=== PATIENT | female | born 2000 | race Two or more races ===

== ENCOUNTER 2022-08-17 22:06 | Emergency (ER) | payer OTHER ==
[~2022-08-17] VITALS: Ht 172.7 cm; Wt 68.2 kg
[2022-08-17 22:30] VITALS: BP 134/88
[2022-08-17] MEDS ORDERED: DIVA500T9 PO (23:33)
[2022-08-17] MEDS ORDERED: TRAZ-186 PO (23:33)
[2022-08-17] MEDS ORDERED: QUET100T2 PO (23:33)
[2022-08-17] MEDS ORDERED: BENZ1TAB5 PO (23:33)
[2022-08-17] MEDS ORDERED: HOME MED LIST COMPLETE! XX SCH (23:35)
[2022-08-18 00:21] LABS: AMPHETAMINES LEVEL URINE NEGATIVE (NEGATIVE); BARBITURATES URINE NEGATIVE (NEGATIVE); BENZODIAZEPINES URINE NEGATIVE (NEGATIVE); COCAINE METABOLITE URINE NEGATIVE (NEGATIVE); METHADONE URINE NEGATIVE (NEGATIVE); PHENCYCLIDINE URINE NEGATIVE (NEGATIVE)
[2022-08-18 00:22] LABS: OPIATES URINE NEGATIVE (NEGATIVE)
[2022-08-18 00:23] LABS: CANNABINOIDS URINE POSITIVE (NEGATIVE)
[2022-08-18 00:45] LABS: HEMATOCRIT 40.5 % (36.0-47.0); HEMOGLOBIN 13.3 g/dl (12.0-15.5); MEAN CORPUSCULAR HEMOGLOBIN 31.7 pg (27.0-33.0); MEAN CORPUSCULAR HGB CONC 32.8 g/dl (32.0-36.5); MEAN CORPUSCULAR VOLUME 96.4 fl (80.0-96.0); PLATELET COUNT, AUTOMATED 209 10^3/uL (150-450)
[2022-08-18 01:05] LABS: ETHYL ALCOHOL (ETHANOL) < 0.003 % (0.000-0.010)
[2022-08-18 01:07] LABS: ACETAMINOPHEN LEVEL < 2.0 UG/ML (10.0-20.0); SALICYLATE LEVEL < 3.0 MG/DL (<30)
[2022-08-18 01:08] LABS: ALBUMIN 4.3 G/DL (3.2-5.2); ALKALINE PHOSPHATASE 51 U/L (46-116); ALT/SGPT 27 U/L (7.0-40); AST/SGOT 32 U/L (<34); BILIRUBIN,DIRECT 0.2 MG/DL (<0.4); BILIRUBIN,TOTAL 0.6 MG/DL (0.3-1.2); BLOOD UREA NITROGEN 15 MG/DL (9-23); CALCIUM LEVEL 9.5 MG/DL (8.5-10.1); CARBON DIOXIDE LEVEL 25 MMOL/L (20-31); CHLORIDE LEVEL 105 MMOL/L (98-107); CREATININE FOR GFR 1.05 MG/DL (0.55-1.30); GLOMERULAR FILTRATION RATE > 60.0 (>60); GLUCOSE, FASTING 101 MG/DL (60-100); POTASSIUM SERUM 3.8 MMOL/L (3.5-5.1); SODIUM LEVEL 137 MMOL/L (136-145); TOTAL PROTEIN 7.7 G/DL (5.7-8.2)
[2022-08-18 01:09] LABS: THYROID STIMULATING HORMONE 0.535 uIU/ML (0.55-4.78)
[2022-08-18] MEDS ORDERED: LORazepam 2 MG TAB PO ONE (01:10)
[2022-08-18 01:14] LABS: HCG, SERUM QUALITATIVE NEGATIVE (NEGATIVE)
== END 2022-08-18 06:00 | disposition home or self-care (01) ==
LOC: M ED 22:06 → EDBD 22:06 → M ED 08-18 06:00
DX: F32.A Depression, unspecified (principal); F17.200 Nicotine dependence, unspecified, uncomplicated; F12.10 Cannabis abuse, uncomplicated; Z79.899 Other long term (current) drug therapy

== ENCOUNTER 2022-08-20 18:50 | Inpatient (IN) | payer OTHER ==
[~2022-08-20] VITALS: Ht 172.7 cm; Wt 68.0 kg
[~2022-08-20 18:50] MED LIST: BENZ1TAB5 PO; DIVA500T9 PO; QUET100T2 PO; TRAZ-186 PO
[2022-08-20] MEDS ORDERED: HOME MED LIST COMPLETE! XX SCH (19:50)
[2022-08-20 21:07] LABS: HEMATOCRIT 38.6 % (36.0-47.0); HEMOGLOBIN 13.1 g/dl (12.0-15.5); MEAN CORPUSCULAR HGB CONC 33.9 g/dl (32.0-36.5); MEAN CORPUSCULAR VOLUME 94.4 fl (80.0-96.0); PLATELET COUNT, AUTOMATED 221 10^3/uL (150-450); RED BLOOD COUNT 4.09 10^6/uL (4.00-5.40); WHITE BLOOD COUNT 7.3 10^3/uL (4.0-10.0)
[2022-08-20 21:26] LABS: AMPHETAMINES LEVEL URINE NEGATIVE (NEGATIVE); BENZODIAZEPINES URINE NEGATIVE (NEGATIVE); COCAINE METABOLITE URINE NEGATIVE (NEGATIVE); METHADONE URINE NEGATIVE (NEGATIVE); OPIATES URINE NEGATIVE (NEGATIVE); PHENCYCLIDINE URINE NEGATIVE (NEGATIVE)
[2022-08-20 21:27] LABS: BARBITURATES URINE NEGATIVE (NEGATIVE)
[2022-08-20 21:28] LABS: CANNABINOIDS URINE POSITIVE (NEGATIVE); ETHYL ALCOHOL (ETHANOL) < 0.003 % (0.000-0.010)
[2022-08-20 21:30] LABS: ACETAMINOPHEN LEVEL < 2.0 UG/ML (10.0-20.0); SALICYLATE LEVEL < 3.0 MG/DL (<30)
[2022-08-20 21:32] LABS: THYROID STIMULATING HORMONE 0.838 uIU/ML (0.55-4.78)
[2022-08-20 21:33] LABS: HCG, SERUM QUALITATIVE NEGATIVE (NEGATIVE)
[2022-08-20 21:37] LABS: ALBUMIN 4.1 G/DL (3.2-5.2); ALKALINE PHOSPHATASE 50 U/L (46-116); ALT/SGPT 22 U/L (7.0-40); AST/SGOT 21 U/L (<34); BILIRUBIN,DIRECT 0.4 MG/DL (<0.4); BLOOD UREA NITROGEN 11 MG/DL (9-23); CALCIUM LEVEL 9.9 MG/DL (8.5-10.1); CARBON DIOXIDE LEVEL 28 MMOL/L (20-31); CHLORIDE LEVEL 104 MMOL/L (98-107); CREATININE FOR GFR 0.88 MG/DL (0.55-1.30); GLOMERULAR FILTRATION RATE > 60.0 (>60); GLUCOSE, FASTING 104 MG/DL (60-100); POTASSIUM SERUM 3.6 MMOL/L (3.5-5.1); SODIUM LEVEL 138 MMOL/L (136-145); TOTAL PROTEIN 7.5 G/DL (5.7-8.2)
[2022-08-21] MEDS ORDERED: BENZTROPINE 1 MG TAB PO SCH (09:00)
[2022-08-21] MEDS ORDERED: DIVALPROEX 250MG *ER* TAB PO SCH (09:00)
[2022-08-21] MEDS ORDERED: traZODone 50 MG TAB PO PRN ×2 (09:25→13:35)
[2022-08-21] MEDS ORDERED: MOM 30ML SUSPENSION UDC PO PRN (13:35)
[2022-08-21] MEDS ORDERED: ACETAMINOPHEN TAB 650MG DOSE (2X325MG) PO PRN (13:35)
[2022-08-21] MEDS ORDERED: diphenhydrAMINE 25MG CAP PO PRN (13:35)
[2022-08-21] MEDS ORDERED: MAALOX 30 ML SUSP *UDC PO PRN (13:35)
[2022-08-21] MEDS ORDERED: IBUPROFEN 400MG TAB PO PRN (13:35)
[2022-08-21 14:11] VITALS: BP 124/84
[2022-08-21] MEDS: NICOTINE 21MG/24HR 1 EA TRANSDERMAL TD PRN (15:50)
[2022-08-21] MEDS ORDERED: QUEtiapine FUMARATE 100 MG TAB PO SCH ×2 (21:00)
[2022-08-21] MEDS: DIVALPROEX 500MG *ER* TAB PO SCH (21:00)
[2022-08-21] MEDS: BENZTROPINE 1 MG TAB PO SCH (21:00)
[2022-08-21] MEDS: traZODone 50 MG TAB PO PRN (22:10)
[2022-08-22 06:31] VITALS: BP 113/76
[2022-08-22] MEDS: BENZTROPINE 1 MG TAB PO SCH (08:16)
[2022-08-22] MEDS: DIVALPROEX 500MG *ER* TAB PO SCH (08:16)
[2022-08-22 16:18] VITALS: BP 123/60
[2022-08-22 16:30] VITALS: BP 121/80
[2022-08-22] MEDS: NICOTINE 21MG/24HR 1 EA TRANSDERMAL TD PRN (16:59)
[2022-08-22] MEDS: traZODone 50 MG TAB PO PRN (22:14)
[2022-08-23] MEDS: NICOTINE 21MG/24HR 1 EA TRANSDERMAL TD PRN (09:13)
[2022-08-23 18:31] VITALS: BP 126/82
[2022-08-23] MEDS: traZODone 50 MG TAB PO PRN (21:13)
[2022-08-24 06:36] VITALS: BP 127/83
[2022-08-24] MEDS ORDERED: ABIL1TAB11 PO (08:01)
[2022-08-24] MEDS: NICOTINE 21MG/24HR 1 EA TRANSDERMAL TD PRN (08:50)
[2022-08-24] MEDS ORDERED: LORATADINE 10 MG TAB PO SCH (09:00)
== END 2022-08-24 10:49 | disposition home or self-care (01) | DRG 885 ==
LOC: M ED 18:50 → M ED INP 08-21 13:32 → M PSY 08-21 14:38
PROVIDERS: ADMIT Psychiatry & Neurology Child & Adolescent Psychiatry; ATTEND Psychiatry & Neurology Psychiatry
DX: F39 Unspecified mood [affective] disorder (principal); R45.851 Suicidal ideations; F12.10 Cannabis abuse, uncomplicated; F17.290 Nicotine dependence, other tobacco product, uncomplicated; Z20.822 Contact with and (suspected) exposure to COVID-19; Z79.899 Other long term (current) drug therapy; Z63.0 Problems in relationship with spouse or partner